=== PATIENT | female | born 1960 | race Caucasian/White ===

== ENCOUNTER → 2016-12-10 | Outpatient (CLI) | payer MEDICARE ==
[~2016-12-10] MED LIST: ALPR.5 PO; ASPI81TA5 PO; HYDR-3583 PO; HYDR25TA5 PO; LOVA20TA PO; MACR100C2 PO; PARO1TAB72 PO; PRAV20TA2 PO; PRED20 PO; [UNRECOGNIZED DRUG - CODE]
[2016-12-10 10:58] LABS: AUTOMATED NEUTROPHIL # 5.5 TH/MM3 (1.8-7.7); BASOPHIL # 0.1 TH/MM3 (0-0.2); BASOPHIL % 0.8 % (0.0-2.0); EOSINOPHIL # 0.5 TH/MM3 (0-0.4); EOSINOPHIL % 5.1 % (0.0-4.0); HEMATOCRIT 42.2 % (35.0-46.0); HEMO FLAGS DIFF FINAL; LYMPH % 27.6 % (9.0-44.0); LYMPHOCYTE # 2.5 TH/MM3 (1.0-4.8); MEAN CELL VOLUME 89.2 FL (80.0-100.0); MEAN CORPUSCULAR HEMOGLOBIN 29.6 PG (27.0-34.0); MEAN CORPUSCULAR HGB CONC 33.2 % (32.0-36.0); MONO % 6.2 % (0.0-8.0); NEUT % 60.3 % (16.0-70.0); PLATELET COUNT 401 TH/MM3 (150-450); RED BLOOD COUNT 4.73 MIL/MM3 (4.00-5.30); RED CELL DISTRIBUTION WIDTH 14.3 % (11.6-17.2); WHITE BLOOD COUNT 9.1 TH/MM3 (4.0-11.0)
[2016-12-10 11:22] LABS: ALT (GPT) 39 U/L (10-53); ANION GAP 6 MEQ/L (5-15); AST (GOT) 25 U/L (15-37); BICARBONATE 29.4 MEQ/L (21.0-32.0); BLOOD UREA NITROGEN 15 MG/DL (7-18); CHLORIDE 104 MEQ/L (98-107); GLOMERULAR FILTRATION RATE 93 ML/MIN (>89); GLUCOSE,FASTING 89 MG/DL (74-99); SODIUM (NA) 139 MEQ/L (136-145)
[2016-12-10 11:32] LABS: ALKALINE PHOSPHATASE 124 U/L (45-117); HDL CHOLESTEROL 47.6 MG/DL (40.0-60.0); LDL CHOLESTEROL 163 MG/DL (0-99); TOTAL BILIRUBIN ADULT 0.4 MG/DL (0.2-1.0)
[2016-12-10 12:46] LABS: WESTERGREN SEDIMENTATION RATE 14 mm/hr (0-30)
[2016-12-10 16:02] LABS: HEMOGLOBIN A1a 1.1 %; HEMOGLOBIN A1b 1.8 %; HEMOGLOBIN Ao 83.8 %; HEMOGLOBIN LA1C 2.1 %; HEMOGLOBIN P3 5.9 %
== END ==
LOC: CLAB 10:38
PROVIDERS: ATTEND Family Medicine
DX: E78.5 Hyperlipidemia, unspecified (principal); R73.02 Impaired glucose tolerance (oral); R53.83 Other fatigue; M31.6 Other giant cell arteritis
CPT/HCPCS: 36415; 80053; 80061; 83036; 84443; 85025; 85652; 86140

== ENCOUNTER → 2016-12-12 | Outpatient (CLI) | payer MEDICARE ==
[~2016-12-12] MED LIST changes: -LOVA20TA PO
--- NOTE | 2016-12-12 12:34 | MG ---
cc: KRISTINE POST Lab No: Date: 12/12/2016 Age:56 Sex: F Race: DATE OF [address] Ayo Britt Jr. MEDICAL HISTORY 1. Hypercholesteremia. 2. Hypertension. 3. Diverticulitis. 4. Cholecystectomy. 5. Anxiety depression. 6. Caffeine. 7. Tobacco abuse. 8. Urinary frequency. 9. Lightheaded, dizziness and passing out. MEDICATIONS 1. Lortab. 2. Xanax. 3. Aspirin. 4. Alprazolam. 5. Paroxetine. FINDINGS The background activity is 9-10 Hz alpha located posteriorly attenuates to eye opening. Muscle and movement artifacts are seen during the recording. Hyperventilation was performed but stopping upon the request of the patient. Photic stimulation did not elicit a driving response.There were no electrographic seizures or epileptiform discharges noted during the recording. INTERPRETATION This is a normal awake EEG recording. The absence of electrographic seizures or epileptiform discharges does not exclude the diagnosis of a seizure disorder. Clinical correlation is recommended. Kristine Post MD RGO/SSB /12:11 PM /12:32 PM MTDMavis
--- NOTE | 2016-12-13 15:04 | HM ---
Date Performed: 12/13/2016 Time Performed: 07:59:00 HOOKUP DATE: 12/13/16 07:59:00 AM Fri ANALYSIS START TIME: 12/13/2016 8:04:00 AM ANALYSIS END TIME: 12/14/2016 6:40:49 AM PATIENT AGE: 56 PATIENT HEIGHT PATIENT WEIGHT DRUG LIST PATIENT DIAGNOSIS: syncope TEST NARRATIVE: The patient's average heart rate was 74 BPM. Heart rates greater than 120 B PM were noted < 1% of the time. Heart rates less than 50 BPM were noted < 1% of the time. No ba ses exceeding 2.0 seconds were noted. 15 ventricular ectopics, which represented < 1% of the tota l beat count, were noted. The highest ventricular ectopic frequency occurred from 12:00 PM to 01:00 PM Fri. During this time 3 VE(s) occurred. Ventricular ectopics were observed as 15 isolated beat(s ) only. No couplets or runs were noted. 2 supraventricular ectopics, which represented < 1% of t he total beat count, were noted. The highest supraventricular ectopic frequency occurred from 05:00 PM to 06:00 PM Fri. During this time 1 SVE(s) occurred. No episodes of ST depression (defined as -1.0 mm or more) were noted in channel 1. No episodes of ST depression (defined as -1.0 mm or more) were noted in channel 2. In channel 3, a single episode of ST depression (defined as -1.0 mm or mor e) occurred at 02:37:33 PM Fri with a maximum depression of -2.1 mm. NO DIARY ENTRIES TEST INTERPRETATION: 1.Predominant underlying rhythm is sinus 2. Occasional PAC AND PVCs 3. No a trial or ventricular tachyarrhythmias noted 4. No pauses of > 3 sec noted 5. No cardiac symptoms note d during recorded time interval Si gned by : Eduard Warner
== END ==
LOC: HCAV 08:29
PROVIDERS: ATTEND Family Medicine
DX: R55 Syncope and collapse (principal)
CPT/HCPCS: 93225; 93226; 95819

== ENCOUNTER → 2017-05-12 | Outpatient (CLI) | payer MEDICARE ==
[~2017-05-12] MED LIST changes: -ASPI81TA5 PO; +AUGM875T3 PO; +ECASA81 PO; +ESTR42.5V VAGINAL; -PARO1TAB72 PO; +PARO20TA3 PO; +PRED1 PO; -PRED20 PO; +PREN29TA PO
[2017-05-12 13:30] LABS: BASOPHIL # 0.1 TH/MM3 (0-0.2); BASOPHIL % 0.6 % (0.0-2.0); EOSINOPHIL # 0.4 TH/MM3 (0-0.4); EOSINOPHIL % 5.1 % (0.0-4.0); HEMATOCRIT 40.1 % (35.0-46.0); HEMO FLAGS DIFF FINAL; LYMPH % 30.2 % (9.0-44.0); LYMPHOCYTE # 2.6 TH/MM3 (1.0-4.8); MEAN CELL VOLUME 89.7 FL (80.0-100.0); MEAN CORPUSCULAR HGB CONC 32.3 % (32.0-36.0); MONO % 6.7 % (0.0-8.0); NEUT % 57.4 % (16.0-70.0); PLATELET COUNT 360 TH/MM3 (150-450); RED BLOOD COUNT 4.47 MIL/MM3 (4.00-5.30); RED CELL DISTRIBUTION WIDTH 14.7 % (11.6-17.2); WHITE BLOOD COUNT 8.8 TH/MM3 (4.0-11.0)
== END ==
LOC: CLAB 13:08
PROVIDERS: ATTEND Family Medicine
DX: R10.31 Right lower quadrant pain (principal)
CPT/HCPCS: 36415; 85025

== ENCOUNTER → 2017-07-31 | Outpatient (CLI) | payer MEDICARE ==
[~2017-07-31] MED LIST changes: -AUGM875T3 PO
[2017-07-31 10:14] LABS: AUTOMATED NEUTROPHIL # 5.5 TH/MM3 (1.8-7.7); BASOPHIL # 0.1 TH/MM3 (0-0.2); BASOPHIL % 1.1 % (0.0-2.0); EOSINOPHIL # 0.4 TH/MM3 (0-0.4); EOSINOPHIL % 4.3 % (0.0-4.0); HEMATOCRIT 42.9 % (35.0-46.0); HEMOGLOBIN 14.6 GM/DL (11.6-15.3); LYMPH % 26.4 % (9.0-44.0); LYMPHOCYTE # 2.4 TH/MM3 (1.0-4.8); MEAN CELL VOLUME 87.2 FL (80.0-100.0); MEAN CORPUSCULAR HEMOGLOBIN 29.6 PG (27.0-34.0); MEAN PLATELET VOLUME 6.6 FL (7.0-11.0); MONO % 6.3 % (0.0-8.0); MONOCYTE # 0.6 TH/MM3 (0-0.9); NEUT % 61.9 % (16.0-70.0); PLATELET COUNT 485 TH/MM3 (150-450); RED BLOOD COUNT 4.92 MIL/MM3 (4.00-5.30); RED CELL DISTRIBUTION WIDTH 14.7 % (11.6-17.2); WHITE BLOOD COUNT 8.9 TH/MM3 (4.0-11.0)
[2017-07-31 10:20] LABS: ALBUMIN 3.8 GM/DL (3.4-5.0); ALT (GPT) 27 U/L (10-53); AST (GOT) 23 U/L (15-37); BICARBONATE 31.1 MEQ/L (21.0-32.0); BLOOD UREA NITROGEN 11 MG/DL (7-18); CALCIUM 8.9 MG/DL (8.5-10.1); CHLORIDE 103 MEQ/L (98-107); CREATININE 0.68 MG/DL (0.50-1.00); GLOMERULAR FILTRATION RATE 90 ML/MIN (>89); GLUCOSE,FASTING 96 MG/DL (74-99); SODIUM (NA) 139 MEQ/L (136-145)
[2017-07-31 10:23] LABS: ALKALINE PHOSPHATASE 120 U/L (45-117); TOTAL BILIRUBIN ADULT 0.4 MG/DL (0.2-1.0); TOTAL PROTEIN 7.9 GM/DL (6.4-8.2)
[2017-07-31 10:58] LABS: BILIRUBIN, URINE NEG (NEG); BLOOD, URINE NEG (NEG); GLUCOSE,URINE NEG (NEG); KETONE, URINE NEG (NEG); MUCUS URINE MANY /lpf (OCC); NITRITE,URINE NEG (NEG); PH, URINE 5.5 (5.0-8.5); SQUAMOUS EPITHELIAL CELL URINE 2 /hpf (0-5); URINE COLOR YELLOW (YELLW/STRAW); URINE LEUKOCYTE ESTERASE NEG (NEG)
--- NOTE | 2017-07-31 13:40 | EKG ---
Date Performed: 07/31/2017 Time Performed: 09:25:00 PTAGE: 57 years EKG: Sinus rhythm POSSIBLE RIGHT VENTRICULAR CONDUCTION DELAY NONSPECIFIC T-WAVE ABNORMALITY BORDERLINE ECG NO PREVIOUS TRACING DOCTOR: Alfredito Heck Interpretating Date/Time 07/31/2017 13:38:57
== END ==
LOC: CPRE 09:07
PROVIDERS: ATTEND Obstetrics & Gynecology Gynecology
DX: Z01.810 Encounter for preprocedural cardiovascular examination (principal); Z01.812 Encounter for preprocedural laboratory examination; Z01.818 Encounter for other preprocedural examination; R94.31 Abnormal electrocardiogram [ECG] [EKG]; R31.21 Asymptomatic microscopic hematuria
CPT/HCPCS: 36415; 80053; 81001; 85025; 93005

== ENCOUNTER → 2017-08-15 | Day surgery (SDC) | payer MEDICARE ==
--- NOTE | 2017-07-31 10:59 | MH ---
cc: Jean Carlos Peng MD DATE OF ADMISSION: 08/15/2017 She is scheduled for admission on 08/15 for cystoscopy for gross hematuria. Patient is a 57-year-old white female, 3, para 2, has a history of bladder injury following a hysterectomy, has had multiple surgical procedures to repair the bladder. She has a 56-izyr-cecy smoking history, has had recent onset of gross hematuria. Evaluation in the office is difficult because of her inability to tolerate the pelvic exam. She is scheduled now for cystoscopy to evaluate her bladder. MEDICAL HISTORY: Notable for anxiety, depression, hypercholesterolemia, hypertension, temporal arteritis. MEDICATIONS: Hydrocodone p.r.n. 5 mg, prednisone 20 mg daily, pravastatin 20 mg daily, hydrochlorothiazide 25 mg daily, paroxetine 20 mg daily, Xanax 0.5 mg p.r.n., aspirin 81 mg daily. ALLERGIES: ANCEF, CELEXA, BACTRIM, PROMETHAZINE. SURGICAL HISTORY: Abdominal hysterectomy with BSO with subsequent bladder injury and at least 6 surgical procedures to correct the bladder. OBSTETRIC HISTORY: Two vaginal deliveries. FAMILY HISTORY: Noncontributory. SOCIAL HISTORY: Vxtvs-exvg-pija smoking history, drinks occasionally. Has good social support. REVIEW OF SYSTEMS: As above, otherwise 14-point review negative. No chest pain, orthopnea, PND. No nausea, vomiting, fever or chills. EXAMINATION: She is afebrile, vital signs stable. Blood pressure is 140/80. Height is 5 feet 6 inches. Weight is 230. BMI is 37. HEENT: Within normal limits. NECK: Supple, no JVD. CHEST: Clear. HEART: Regular rate and rhythm. ABDOMEN: Soft, nontender, no hepatosplenomegaly. No CVA tenderness. PELVIC: In the office is limited secondary to patient discomfort but appears to have reasonable pelvic support. Further exam under anesthesia. EXTREMITIES: Normal. SKIN: No rashes. No DVT signs. ASSESSMENT: Patient with hematuria, [id number]-aesb smoking history, prior history of bladder surgery. At this point, we discussed the options for management and treatment. We went over the risks, benefits, alternatives of planned procedure including damage to surrounding organs, bleeding and infection. PATIENT HAS ALLERGY TO ANCEF, so we will use Cleocin and Flagyl for antibiotic prophylaxis. She will probably use stress dose of steroids, and we will discuss that with anesthesia at the time of surgery. Anticipate outpatient procedure. MD SUSAN Parra/SHEFALI , 10:30 AM , 10:50 AM
[~2017-08-15] VITALS: Ht 170.2 cm; Wt 104.4 kg
[~2017-08-15] MED LIST changes: +*MEPERIDINE 25 MG INJ VIAL PERIprocedural Use ONLY ONE; +*ONDANSETRON 4 MG VIAL PERIprocedural Use ONLY ONE; +CHLORHEXIDINE GLUCONATE 2 % 1 PACK (2 CLOTHS) TOPICAL PRN; +CLINDAMYCIN 600 MG/NS 100 ML IV SCH; +DEXAMETHASONE SOD PHOS 4 MG/ML VIAL IV ONE; +DO NOT ADM ANY ANTICOAGULANT DRUGS PRN; -ESTR42.5V VAGINAL; +KETOROLAC TROMETHAMINE 10 MG TAB PO PRN; +KETOROLAC TROMETHAMINE 30 MG/ML (IVP) VIAL IV PUSH ONE; +KETOROLAC TROMETHAMINE 30 MG/ML (IVP) VIAL IV PUSH PRN; +LACTATED RINGER'S 1000 ML INJ 1,000 ML IV ONE; +LACTATED RINGER'S 1000 ML IV PRN; +LIDOCAINE HCL 1% PF 5 ML SYRINGE OTHER ONE; -MACR100C2 PO; +METOPROLOL TARTRATE 25 MG TAB PO PRN; +METRONIDAZOLE 500 MG/100 ML ISONTONIC SOLN IV SCH; +MIDAZOLAM HCL 2 MG/2 ML VIAL ONE; +ONDANSETRON HCL 4 MG/2 ML VIAL IV ONE; +ONDANSETRON HCL 4 MG/2 ML VIAL IV PUSH PRN; +POVIDONE IODINE 5% (ANTISEPSIS KIT) 4 APPLICATIONS EACH NARE PRN; -PRED1 PO; +PROPOFOL 200 MG/20 ML AMP IV ONE; +SODIUM CHLORID 0.9% 500 ML IV PRN; +SODIUM CHLORIDE 0.9% INJ 100 ML ONE; -[UNRECOGNIZED DRUG - CODE]
--- NOTE | 2017-08-15 13:07 | MP ---
cc: Jean Carlos Peng MD DATE OF OPERATION: 08/15/2017 DATE OF PROCEDURE: 08/15/2017 PREOPERATIVE DIAGNOSES: 1. Gross hematuria, code R31.0. 2. Overactive bladder, code N32.81. POSTOPERATIVE DIAGNOSES: 1. Gross hematuria, code R31.0. 2. Overactive bladder, code N32.81. PROCEDURE PERFORMED: Cystoscopy with hydrodistention, code 33489. SURGEON: Jean Carlos Peng MD ANESTHESIA: Laryngeal mask. DRY HEAT CABINET ATTENDANT: Benzie staff x 1. ESTIMATED BLOOD LOSS: None. URINE OUTPUT: 200 mL. FLUIDS: 1000 mL crystalloid. FINDINGS: External genitalia normal. POP-Q score Aa is -2, Ap is -2, point C is -8, total vaginal length is 8, genital hiatus is 6, perineal body is 4. The urethra shows some evidence of urethritis, but no lesions significant for biopsy. No significant issues with scarring, or diverticula. The bladder itself on initial inspection appeared to be normal. Anesthetic bladder capacity was 800 mL of water. With reinspection, there were areas of glomerulation and petechiae along the base of the bladder, suggestive of chronic trigonitis or possible interstitial cystitis/bladder pain syndrome. There were no lesions amenable to biopsy. No ulcerations. No frond-like lesions. SPECIMENS: None. COMPLICATIONS: None. DISPOSITION: To recovery room stable. COUNTS: Needle and sponge count correct. DRAINS: None. ANTIBIOTIC PROPHYLAXIS: Cleocin 600 mg IV, flagyl 500 mg IV. DVT PROPHYLAXIS: Sequential compression devices (note, patient refused a device on the right leg because of "I have a new tat." SUMMARY OF INDICATION FOR PROCEDURE: The patient with [id number]-aqsl smoking history, has a report of gross hematuria, but we have never documented that in the office. She has had issues with microhematuria and does have issues with overactive bladder. She has a distant history of bladder injury during hysterectomy that required "at least 7 surgeries and they messed me up." The patient was given the option for in-office cystoscopy, but she is hypersensitive to pelvic exam and this was not going to be possible in the office, so plans were made for exam under anesthesia, cystoscopy and hydrodistention. DETAILS OF PROCEDURE: The patient was taken to the operating theater and then prepped and draped in the usual sterile fashion for planned procedures. She was placed dorsal lithotomy position with careful attention paid to placing the patient's legs in stirrups to avoid undue stress to sensitive neurovascular structures. Above findings noted. Neurovascular integrity documented. The bladder was inspected using a 17-Anguillan bridge, a 70-degree scope. We noted that there was no significant abnormality of the dome or base of bladder. There was some mild urethritis noted, but no diverticula or significant scarring. Bladder capacity was noted to be 800 mL. We then rescoped and noted petechia and glomerulations along the base of the bladder, but no Hunner's ulcers, no frond-like lesions, no other significant issues. At this point, we have no clear etiology of her gross hematuria. We have never been able to document gross hematuria. I would suggest next time that it happens she present to the ER, so we can perhaps be more complete in our evaluation and have some idea of where the bleeding issue may be coming from. At this point, we recommend cessation of smoking and will followup in the office in 2 weeks. MD SUSAN Parra/CORBIN , 12:19 PM , 01:05 PM
[2017-08-15 13:10] VITALS: BP 119/75; PULSE 79; RESP 16; TEMP 98.2; O2SAT 94
== END | disposition home or self-care (01) ==
LOC: HSDC 07:56
PROVIDERS: ATTEND Obstetrics & Gynecology Gynecology
DX: R31.0 Gross hematuria (principal); N32.81 Overactive bladder; I10 Essential (primary) hypertension; E78.00 Pure hypercholesterolemia, unspecified; F32.9 Major depressive disorder, single episode, unspecified; F41.9 Anxiety disorder, unspecified; Z87.891 Personal history of nicotine dependence; Z79.899 Other long term (current) drug therapy
CPT/HCPCS: 00910; 52260; J1100; J1885; J2175; J2250; J2405; J7120

== ENCOUNTER → 2017-09-01 | Outpatient (CLI) | payer MEDICARE ==
[~2017-09-01] MED LIST changes: -*MEPERIDINE 25 MG INJ VIAL PERIprocedural Use ONLY ONE; -*ONDANSETRON 4 MG VIAL PERIprocedural Use ONLY ONE; -CHLORHEXIDINE GLUCONATE 2 % 1 PACK (2 CLOTHS) TOPICAL PRN; -CLINDAMYCIN 600 MG/NS 100 ML IV SCH; -DEXAMETHASONE SOD PHOS 4 MG/ML VIAL IV ONE; -DO NOT ADM ANY ANTICOAGULANT DRUGS PRN; -KETOROLAC TROMETHAMINE 10 MG TAB PO PRN; -KETOROLAC TROMETHAMINE 30 MG/ML (IVP) VIAL IV PUSH ONE; -KETOROLAC TROMETHAMINE 30 MG/ML (IVP) VIAL IV PUSH PRN; -LACTATED RINGER'S 1000 ML INJ 1,000 ML IV ONE; -LACTATED RINGER'S 1000 ML IV PRN; -LIDOCAINE HCL 1% PF 5 ML SYRINGE OTHER ONE; -METOPROLOL TARTRATE 25 MG TAB PO PRN; -METRONIDAZOLE 500 MG/100 ML ISONTONIC SOLN IV SCH; -MIDAZOLAM HCL 2 MG/2 ML VIAL ONE; -ONDANSETRON HCL 4 MG/2 ML VIAL IV ONE; -ONDANSETRON HCL 4 MG/2 ML VIAL IV PUSH PRN; -POVIDONE IODINE 5% (ANTISEPSIS KIT) 4 APPLICATIONS EACH NARE PRN; -PREN29TA PO; -PROPOFOL 200 MG/20 ML AMP IV ONE; -SODIUM CHLORID 0.9% 500 ML IV PRN; -SODIUM CHLORIDE 0.9% INJ 100 ML ONE
[2017-09-01 09:45] LABS: AUTOMATED NEUTROPHIL # 6.6 TH/MM3 (1.8-7.7); BASOPHIL # 0.1 TH/MM3 (0-0.2); BASOPHIL % 1.2 % (0.0-2.0); EOSINOPHIL # 0.3 TH/MM3 (0-0.4); EOSINOPHIL % 3.3 % (0.0-4.0); HEMATOCRIT 43.9 % (35.0-46.0); HEMOGLOBIN 14.6 GM/DL (11.6-15.3); LYMPHOCYTE # 2.2 TH/MM3 (1.0-4.8); MEAN CELL VOLUME 87.4 FL (80.0-100.0); MEAN CORPUSCULAR HEMOGLOBIN 29.1 PG (27.0-34.0); MEAN CORPUSCULAR HGB CONC 33.3 % (32.0-36.0); MEAN PLATELET VOLUME 6.5 FL (7.0-11.0); MONOCYTE # 0.5 TH/MM3 (0-0.9); NEUT % 67.5 % (16.0-70.0); PLATELET COUNT 458 TH/MM3 (150-450); RED BLOOD COUNT 5.02 MIL/MM3 (4.00-5.30); RED CELL DISTRIBUTION WIDTH 15.2 % (11.6-17.2); WHITE BLOOD COUNT 9.7 TH/MM3 (4.0-11.0)
[2017-09-01 10:12] LABS: ALBUMIN 3.7 GM/DL (3.4-5.0); AST (GOT) 18 U/L (15-37); BICARBONATE 29.9 MEQ/L (21.0-32.0); BLOOD UREA NITROGEN 16 MG/DL (7-18); CALCIUM 9.3 MG/DL (8.5-10.1); CHLORIDE 103 MEQ/L (98-107); CREATININE 0.71 MG/DL (0.50-1.00); GLOMERULAR FILTRATION RATE 85 ML/MIN (>89); GLUCOSE,FASTING 93 MG/DL (74-99); SODIUM (NA) 142 MEQ/L (136-145)
[2017-09-01 10:37] LABS: % SATURATION IRON PROFILE 15.1 % (20-50); ALKALINE PHOSPHATASE 120 U/L (45-117); ALT (GPT) 29 U/L (10-53); C-REACTIVE PROTEIN 1.57 MG/DL (0.00-0.30); FERRITIN 147 NG/ML (8-252); IRON (FE) 50 MCG/DL (50-170); TOTAL BILIRUBIN ADULT 0.3 MG/DL (0.2-1.0); TOTAL IRON BINDING CAPACITY 332 MCG/DL (250-450)
[2017-09-01 10:47] LABS: FOLATE GREATER THAN 20.0 NG/ML (3.1-17.5)
== END ==
LOC: CLAB 08:27
PROVIDERS: ATTEND Internal Medicine Hematology & Oncology
DX: R79.89 Other specified abnormal findings of blood chemistry (principal)
CPT/HCPCS: 36415; 80053; 82607; 82728; 82746; 83540; 83550; 83615; 85025; 86140